=== PATIENT | male | born 1955 | race Caucasian/White ===

== ENCOUNTER 2017-01-23 08:41 | Outpatient (CLI) | payer MEDICARE, MEDICAID ==
--- NOTE | 2017-01-23 11:00 | CT ---
CT OF ABDOMEN AND PELVIS PERFORMED WITHOUT CONTRAST ENHANCEMENT: HISTORY: The patient has a history of right nephrectomy and bladder cancer. Also a history of renal calculi. COMPARISON: A 05/21/16 exam. FINDINGS: Lung conde show some chronic-appearing change without infiltrates. A tiny amount of pericardial flui d is incidentally noted. The liver, spleen, pancreas, and gallbladder regions appear unremarkable given the limitations of a noncontrast study. The right and left adrenal glands are normal in appearance. There is a stable area which appears to represent fat necrosis in the right renal bed. The left kidney is normal in size, it is not obstru cted. There is a questionable tiny faint punctate upper pole left renal calculus. There is no sign ificant periaortic or mesenteric adenopathy. CT OF PELVIS PERFORMED WITHOUT CONTRAST ENHANCEMENT: The bladder is not distended. It is difficult to assess. There may be bladder wall thickening vers us under distention. The prostate is mildly prominent. No significant pelvic lymphadenopathy. The appendix is again noted to be prominent but is stable in size. There is no periappendiceal inflamm atory process. IMPRESSION: 1. Status post right nephrectomy. 2. Tiny punctate nonobstructing upper pole left renal calculus. 3. Prominent but stable appearance to the appendix. 4. Overall stable exam as compared to the 05/21/16 study. POS: [facility]
[2017-01-23 17:55] LABS: Bilirubin Negative (Negative); Blood, Urine Negative (Negative); Glucose, Urine (Dipstick) Negative (Negative); Ketone, Urine Negative (Negative); Nitrite Negative (Negative); Protein, Urine (Dipstick) Negative (Neg-Trace)
[2017-01-23 18:02] LABS: Bacteria/HPF None Seen HPF (None Seen); Hyaline Casts/LPF 0-3 HYALINE CAST LPF (0-3 Hyaline); RBC/HPF 0-3 HPF (0-3); Squamous Epithelial 0-3 HPF (0-3); WBC/HPF 0-3 HPF (0-3)
== END 2017-01-23 08:42 | disposition home or self-care (01) ==
LOC: CT 08:41
PROVIDERS: ATTEND Urology
DX: Z01.818 Encounter for other preprocedural examination (principal); N20.0 Calculus of kidney; N39.41 Urge incontinence; Z90.5 Acquired absence of kidney
CPT/HCPCS: 74176; 81001; 87086

== ENCOUNTER 2017-04-02 14:54 | Outpatient (CLI) | payer MEDICARE, MEDICAID ==
[2017-04-02 16:40] LABS: #Basophils 0.1 thou/uL (0.0-0.2); #Eosinphils 0.4 thou/uL (0.0-0.7); #Monocytes 0.9 thou/uL (0.11-0.59); #Neutrophils 8.6 thou/uL (1.40-6.50); %Basophils 0.5 % (0.0-1.0); %Eosinophils 3.1 % (0.0-10.0); %Lymphocytes 23.3 % (21.0-51.0); Hematocrit 39.5 % (42.0-52.0); Mean Platelet Volume 7.8 fL (7.4-10.4); Red Blood Cell (RBC) Count 4.26 mill/uL (4.70-6.10); White Blood Cell (WBC) Count 13.1 thou/uL (4.8-10.8)
[2017-04-02 16:45] LABS: Prothrombin Time 13.6 SEC (12.0-14.7)
--- NOTE | 2017-04-02 16:56 | RAD ---
CHEST PA AND LATERAL: Date: 04/02/17 HISTORY: Preoperative evaluation. COMPARISON: 07/02/16. FINDINGS: Heart size is within normal limits. Stable increased linear and interstitial markings. No confluent p neumonia or overt edema. IMPRESSION: Stable mild chronic changes. No acute intrathoracic disease. POS: [facility]
[2017-04-02 16:57] LABS: Anion Gap 12 mmol/L (10-20); BUN (Urea Nitrogen) 25 mg/dL (8.4-25.7); Calc. Creatinine Clearance 0 mL/min (70-130); Calcium 9.8 mg/dL (7.8-10.44); Carbon Dioxide 30 mmol/L (23-31); Chloride 100 mmol/L (98-107); Estimated GFR-MDRD 51
--- NOTE | 2017-04-03 12:20 | EKG ---
Test Reason : Blood Pressure : / mmHG Vent. Rate : 075 BPM Atrial Rate : 075 BPM P-R Int : 160 ms QRS Dur : 102 ms QT Int : 392 ms P-R-T Axes : 072 -03 065 degrees QTc Int : 437 ms Normal sinus rhythm Inferior infarct (cited on or before 17-MAR-2006) Cannot rule out Anterior infarct (cited on or before 15-DEC-2013) Abnormal ECG When compared with ECG of 02-JUL-2016 10:22, Premature ventricular complexes are no longer Present Confirmed by NELSON OQUENDO ([id number]) on 04/03/2017 12:20:06 PM Referred By: SELENE Confirmed By:NELSON OQUENDO
== END 2017-04-02 14:55 | disposition home or self-care (01) ==
LOC: LABBT 14:54
PROVIDERS: ATTEND Dentist Oral and Maxillofacial Surgery
DX: Z01.818 Encounter for other preprocedural examination (principal); M27.9 Disease of jaws, unspecified
CPT/HCPCS: 71020; 80048; 85025; 85610; 93005; 93010

== ENCOUNTER → 2017-04-07 | Day surgery (SDC) | payer MEDICARE, MEDICAID ==
[2017-04-02 15:50] VITALS: BMI 32.1
[~2017-04-07] MED LIST: Albuterol Sulfate HFA (OR ONLY) ONE; Chlorhexidine Gluconate 15 ML UDCUP SSP ONE; Dexamethasone 20 MG/5 ML VIAL ONE; Fentanyl 250 MCG/5 ML VIAL ONE; Glycopyrrolate 0.2 MG/ML 5 ML SYRINGE ONE; Lidocaine 1% PF 5 ML VIAL ONE; Lidocaine 2% w/Epinephrine 1:200K 20 ML VIAL ONE; Ondansetron HCl/PF 4 MG/2 ML Vial ONE; PHENYLEPHRINE-NS 100 MCG/ML 10 ML SYRINGE ONE; Propofol 200 MG/20 ML VIAL ONE
--- NOTE | 2017-04-08 09:44 | OP ---
PREOPERATIVE DIAGNOSIS: Right mandibular mass. POSTOPERATIVE DIAGNOSIS: Right mandibular mass. PROCEDURE PERFORMED: Biopsy of right mandibular mass. COMPLICATIONS: None. SPECIMENS: Tissue from right mandible taken and sent to pathology for identification. ANESTHESIA: General endotracheal anesthesia through an oral tube. DISPOSITION: The patient was stable, extubated, and transferred to the postoperative recovery unit. The patient is to follow up in my clinic in 1 week. The patient has Tylenol #3, 1 tab p.o. q.6 hour s p.r.n. pain. Instructions were given to his [facility]. BRIEF PATIENT HISTORY AND PROCEDURE IN DETAIL: This is a 62-year-old male with a history of bladder cancer who presented to my office with a 3-6 month history of right jaw swelling. The patient is a v luis manuel poor historian due to prior stroke. He is in a nursing facility. The patient was taken back to the OR, intubated orally, prepped and draped in a sterile fashion. Local anesthetic 2% lidocaine wit h 1:100,000 epinephrine was infiltrated in the area of biopsy. A hockey stick incision over bone was made distal to the last molar on the lower right. Ostectomy of overlying bone curetted, mandibular lesion was then taken as specimen and sent for histopathology. Normal saline irrigation. Gelfoam wa s placed. Closure 4-0 chromic gut. The patient was hemostatic. The patient tolerated the procedure well. There was a throat pack placed throughout the entire procedure.
== END ==
LOC: SDC 10:59
PROVIDERS: ATTEND Dentist Oral and Maxillofacial Surgery
PROC: 0NBT0ZX Excision of Right Mandible, Open Approach, Diagnostic (ICD-10-PCS; principal; 2017-04-07)
DX: D16.5 Benign neoplasm of lower jaw bone (principal); Z91.041 Radiographic dye allergy status; Z91.013 Allergy to seafood; Z90.5 Acquired absence of kidney; Z98.890 Other specified postprocedural states; Z85.51 Personal history of malignant neoplasm of bladder; Z86.73 Personal history of transient ischemic attack (TIA), and cerebral infarction without residual deficits
CPT/HCPCS: 88307; J1100; J2001; J2405; J2704; J3010

== ENCOUNTER 2017-07-28 11:14 | Outpatient (CLI) | payer MEDICARE, MEDICAID | END 2017-07-28 11:15 | disposition home or self-care (01) | LOC: BICCT 11:14 | PROVIDERS: ATTEND Urology | DX: C67.9 Malignant neoplasm of bladder, unspecified (principal); N20.0 Calculus of kidney; Z98.890 Other specified postprocedural states; Z90.5 Acquired absence of kidney | CPT/HCPCS: 74176 ==

== ENCOUNTER 2017-08-12 16:06 | Outpatient (CLI) | payer MEDICARE, MEDICAID ==
--- NOTE | 2017-08-12 17:11 | RAD ---
CHEST ONE VIEW PORTABLE SITTING UPRIGHT: 08/12/17 HISTORY: 62-year-old male with history of preoperative evaluation. COMPARISON: 04/12/17. FINDINGS: Heart size is within normal limits. Small old granuloma calcification in the right chest. No confluen t pneumonia, overt edema or pleural effusion. IMPRESSION: Minimal stable chronic changes. No acute intrathoracic disease. POS: [facility]
== END 2017-08-12 16:07 | disposition home or self-care (01) ==
LOC: RAD-FRANK 16:06
PROVIDERS: ATTEND Internal Medicine
DX: Z01.818 Encounter for other preprocedural examination (principal)
CPT/HCPCS: 71045; 71046

== ENCOUNTER 2017-08-19 11:07 | Outpatient (CLI) | payer MEDICARE, MEDICAID ==
[2017-08-19 13:57] LABS: Bilirubin Negative (Negative); Blood, Urine Negative (Negative); Clarity CLEAR (Clear); Glucose, Urine (Dipstick) Negative (Negative); Hemoglobin 13.3 g/dL (14.0-18.0); Leukocyte Negative (Negative); Mean Corpuscular HGB CONC 32.2 g/dL (32.0-36.0); Mean Corpuscular Volume 86.8 fl (80.0-94.0); Mean Platelet Volume 7.2 fL (7.4-10.4); Nitrite Negative (Negative); Platelet Count 348 thou/uL (130-400); Protein, Urine (Dipstick) Negative (Neg-Trace); RBC Distribution Width 14.2 % (11.5-14.5); Red Blood Cell (RBC) Count 4.74 mill/uL (4.70-6.10); Specific Gravity, Urine 1.015 (1.002-1.036); White Blood Cell (WBC) Count 17.3 thou/uL (4.8-10.8); pH, Urine 6.5 (5.0-9.0)
[2017-08-19 14:05] LABS: PTT 33.6 SEC (22.9-36.1); Prothrombin Time 13.5 SEC (12.0-14.7)
[2017-08-19 15:14] LABS: Anion Gap 20 mmol/L (10-20); BUN (Urea Nitrogen) 24 mg/dL (8.4-25.7); Calc. Creatinine Clearance 0 mL/min (70-130); Calcium 10.3 mg/dL (7.8-10.44); Carbon Dioxide 22 mmol/L (23-31); Chloride 98 mmol/L (98-107); Estimated GFR-MDRD 51; Glucose 66 mg/dL (80-115); Potassium 4.8 mmol/L (3.5-5.1); Sodium 135 mmol/L (136-145)
--- NOTE | 2017-08-19 16:24 | EKG ---
Test Reason : Blood Pressure : / mmHG Vent. Rate : 077 BPM Atrial Rate : 077 BPM P-R Int : 164 ms QRS Dur : 104 ms QT Int : 376 ms P-R-T Axes : 061 -02 063 degrees QTc Int : 425 ms Normal sinus rhythm Inferior infarct (cited on or before 17-MAR-2006) cannot be excluded Abnormal ECG Confirmed by DRE BROWN ([id number]) on 08/19/2017 4:24:22 PM Referred By: CHRIS Confirmed By:DRE BROWN
== END 2017-08-19 11:08 | disposition home or self-care (01) ==
LOC: LABBT 11:07
PROVIDERS: ATTEND Urology
DX: Z01.818 Encounter for other preprocedural examination (principal); C66.1 Malignant neoplasm of right ureter; C67.9 Malignant neoplasm of bladder, unspecified; R94.31 Abnormal electrocardiogram [ECG] [EKG]
CPT/HCPCS: 80048; 81003; 85027; 85610; 85730; 87086; 93005; G0103; 93010

== ENCOUNTER 2017-09-02 08:31 | Day surgery (SDC) | payer MEDICARE, MEDICAID ==
[2017-08-19 11:47] VITALS: BMI 29.5
[2017-09-02] MEDS ORDERED: Fentanyl 250 MCG/5 ML VIAL ONE (08:46)
[2017-09-02] MEDS ORDERED: Levofloxacin 500 mg/D5W 100 ml Premix Bag ONE (08:59)
[2017-09-02] MEDS ORDERED: Ioversol 68 % 50 ML VIAL ONE (09:06)
[2017-09-02] MEDS ORDERED: Phenazopyridine HCl 97.5 MG TABLET ONE (10:23)
--- NOTE | 2017-09-02 11:23 | RAD ---
LEFT RETROGRADE UROGRAM: Date: 09/02/17 HISTORY: Left renal calculi with history of right nephrectomy. COMPARISON: 07/16/16. FINDINGS: Head [employer] Bag[employer] view of the abdomen demonstrates multiple surgical clips along the right abdomen and right pelv is. Phleboliths again overlie the pelvis. Left retrograde urogram is performed and no persistent fill ing defect is seen. However, there does appear to be an area of narrowing in the distal left ureter j ust below the level of the left sacroiliac joint which had a similar appearance to the prior exam. Th ere is no hydronephrosis or hydroureter identified. Final image demonstrates emptying of contrast fro m the left renal collecting system and left ureter. IMPRESSION: Findings suggestive of at least a mild degree of narrowing involving the distal left ureter just belo w the level of the left sacroiliac joint. A similar finding was seen on the prior study. No filling d efect is seen. There is no hydronephrosis or hydroureter. Correlation with intraoperative findings is recommended. POS: [facility]
--- NOTE | 2017-09-02 14:12 | OP ---
DATE OF PROCEDURE: 09/02/2017 PREOPERATIVE DIAGNOSES: 1. 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 2. 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 3. 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 4. History of nonobstructing left punctate renal calculi not appreciated on recent CAT scan of 07/2017. POSTOPERATIVE DIAGNOSES: 1. 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 2. 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 3. 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 4. History of nonobstructing left punctate renal calculi not appreciated on recent CAT scan of 07/2017. PROCEDURES: Cystoscopy, bladder wash, left retrograde pyelogram. SURGEON: Essence Patel D.O. ANESTHESIA: General. COMPLICATIONS: None apparent. DISPOSITION: To recovery room in stable condition. SPECIMEN: Bladder wash for FISH cytology. INTRAOPERATIVE FINDINGS: 1. Nonobstructing soft bulbar stricture not warranting treatment. 2. Bilobar hyperplasia of the prostate. 3. No evidence of bladder tumor recurrence. 4. Clear efflux of urine from the left UO. 5. Retrograde pyelogram without evidence of hydronephrosis or filling defect, left distal ureter with intermittent areas of narrowing however with no evidence of functional obstruction INDICATIONS FOR THE PROCEDURE AND HISTORY: Mr. Mcknight is a 62-year-old male with history of ongoing tobacco abuse, history of low grade TCC of the bladder, multifocal, history of right ureteral TCC status post right nephroureterectomy. His last interval cystoscopy on 04/2017 was grossly unremarkable, cytology negative. Recent CT staging 07/2017 demonstrates no significant pathology of concern. There is no evidence of left renal calculi. The patient previously had a punctate 2 mm left upper pole calcific density. The last time he had recurred was papillary urothelial neoplasm of low malignant potential back in . He has been fully informed regarding direct carcinogenic effects of tobacco abuse and continues to smoke. DESCRIPTION OF THE PROCEDURE: After an informed consent was signed, the patient was taken to the operating room for same in dorsal lithotomy position with the genital area prepped and draped in the usual surgical sterile fashion after general endotracheal anesthesia was administered. Broad spectrum antibiotic therapy and bilateral FADUMO hose, SCDs were placed. At this time, a 21 -Japanese cystoscope was utilized for cystoscopy which passed without difficulty. Again noted the bulbar stricture is a wide caliber stricture not warranting treatment. The prostatic urethra was entered demonstrating bilobar hyperplasia. The bladder was entered which demonstrated no evidence of visible recurrence. We used a 30 and a 70-degree lens. The right UO was surgically absent. The left UO was mildly patulous with clear efflux of urine. At this time, a bladder wash for urine cytology FISH was obtained. We then subsequently proceeded to perform a retrograde pyelogram of the left collecting system with a 5 Japanese open-ended catheter with 1:1 diluted Conray. This demonstrated no evidence of filling defect, there was prompt excretion of contrast, delicate calyces are noticed. He tolerated the procedure well and transported to the recovery room in stable condition. He will follow up with ms 11/16 at 11:15 a.m., and is already scheduled for interval 3-month cystoscopy on 12/03. If cytology remains negative, with no visible recurrence including PUNLMP, we will consider interval cystoscopy in 6-month interval. LISA
[2017-09-02] MEDS ORDERED: Dexamethasone 20 MG/5 ML VIAL ONE (15:00)
[2017-09-02] MEDS ORDERED: Lidocaine 1% PF 5 ML VIAL ONE (15:00)
[2017-09-02] MEDS ORDERED: Succinylcholine Chloride 20 MG/ML 10 ml SYRINGE FS ONE (15:00)
[2017-09-02] MEDS ORDERED: PROPOFOL 200 MG/20 ML VIAL ONE (15:00)
[2017-09-02] MEDS ORDERED: diphenhydrAMINE 50 MG/ML VIAL ONE (15:00)
== END 2017-09-02 14:35 | disposition home or self-care (01) ==
LOC: SDC 08:31
PROVIDERS: ATTEND Urology
PROC: BT1F1ZZ Fluoroscopy of Left Kidney, Ureter and Bladder using Low Osmolar Contrast (ICD-10-PCS; principal; 2017-09-02)
DX: Z08 Encounter for follow-up examination after completed treatment for malignant neoplasm (principal); N35.9 Urethral stricture, unspecified; N40.0 Benign prostatic hyperplasia without lower urinary tract symptoms; F17.210 Nicotine dependence, cigarettes, uncomplicated; E78.5 Hyperlipidemia, unspecified; F32.9 Major depressive disorder, single episode, unspecified; I12.9 Hypertensive chronic kidney disease with stage 1 through stage 4 chronic kidney disease, or unspecified chronic kidney disease; N18.9 Chronic kidney disease, unspecified; M10.9 Gout, unspecified; I25.10 Atherosclerotic heart disease of native coronary artery without angina pectoris; I25.2 Old myocardial infarction; I69.359 Hemiplegia and hemiparesis following cerebral infarction affecting unspecified side; Z85.51 Personal history of malignant neoplasm of bladder; Z85.54 Personal history of malignant neoplasm of ureter; Z79.1 Long term (current) use of non-steroidal anti-inflammatories (NSAID); Z79.899 Other long term (current) drug therapy; Z91.013 Allergy to seafood; Z91.041 Radiographic dye allergy status; Z99.2 Dependence on renal dialysis; Z90.5 Acquired absence of kidney; Z90.6 Acquired absence of other parts of urinary tract
CPT/HCPCS: 52005; 74420; 88121; 96374; C1758; J1100; J1200; J1956; J2001; J2704; J3010; Q9967

== ENCOUNTER 2017-10-09 13:44 | Outpatient (CLI) | payer MEDICARE, MEDICAID ==
--- NOTE | 2017-10-09 16:22 | CT ---
CONTRAST ENHANCED CT IMAGES OF THE SOFT TISSUE NECK 10/09/17 COMPARISON: Comparison made to previous exam from 07/14/17. Contrast enhanced CT of the soft tissue neck is performed. There is an expansile mass originating in the right mandible extending into the right secretary receptionist spac e medially and laterally. There is destruction in permeative changes in the right posterior mandibula r body as well as the entire right mandibular ramus extending into the right mandibular condyle. The destructive component of this has slightly increased when compared to the previous exam. Maximum axia l dimensions measure approximately 6.3 x 7.5 cm. The overall volume appears to be slightly increased compared to the previous exam. The lateral aspect extends and envelopes and involves the right masset er muscle. The medial aspect extends into the right medial and lateral pterygoid muscles. Right jugul odigastric lymph node enlargement again seen. Additional smaller deep cervical lymph node enlargement also seen. There is also some mildly enlarged lymph nodes in the right 5A lymph nodes. IMPRESSION: Enlarging right secretary receptionist space mass with extensive erosive changes involving much of the right post erior mandible. POS: [facility]
[2017-10-09] MEDS ORDERED: Iopamidol 370 76% 100 ML VIAL ONE (16:39)
== END 2017-10-09 13:45 | disposition home or self-care (01) ==
LOC: CT 13:44
PROVIDERS: ATTEND Internal Medicine
DX: D49.89 Neoplasm of unspecified behavior of other specified sites (principal)
CPT/HCPCS: 70491; 82565